=== PATIENT | female | born 1995 | race Two or more races ===

== ENCOUNTER 2024-05-25 10:01 | Emergency (ER) | payer OTHER ==
[~2024-05-25] VITALS: Ht 172.7 cm; Wt 63.5 kg
[2024-05-25] MEDS ORDERED: TAMSULOSIN HCL 0.4 MG CAP PO ONE (10:45)
[2024-05-25] MEDS ORDERED: CEFTRIAXONE SODIUM 1,000 MG VIAL IM ONE (10:45)
[2024-05-25] MEDS ORDERED: KETOROLAC TROMETHAMINE 60 MG VIAL IM ONE (10:45)
[2024-05-25 11:22] LABS: HEMATOCRIT 37.3 % (36.0-45.00); HEMOGLOBIN 12.2 g/dL (12.0-15.00); MEAN CELL VOLUME 91.6 fL (80.00-100.00); MEAN CORPUSCULAR HEMOGLOBIN 30.1 pg (27.00-32.0); MEAN CORPUSCULAR HGB CONC 32.8 g/dl (32.0-36.0); PLATELET COUNT 229 K/uL (150-450); RED BLOOD COUNT 4.07 M/uL (4.00-6.00); RED CELL DISTRIBUTION WIDTH 14.4 % (11.5-14.5)
[2024-05-25 11:56] LABS: ALBUMIN 3.8 gm/dL (3.4-5.0); ALKALINE PHOSPHATASE 57 U/L (50-136); ALT/SGPT 18 U/L (12-78); ANION GAP 7 (10.0-20.0); AST/SGOT 13 U/L (15-37); BLOOD UREA NITROGEN 13 mg/dL (7-18); BUN CREA RATIO 17 (7.0-25.0); CALCIUM 9.7 mg/dL (8.5-10.1); CARBON DIOXIDE 29 mEq/L (21-32); CHLORIDE 112 mmol/L (98-107); CREATININE SERUM 0.76 mg/dL (0.55-1.02); GFR 90.62; GLOBULINA 3.4 G/DL (2.4-3.5); GLUCOSE FASTING 90 mg/dL (65-100); OSMOLALITY SERUM 285 MOSM/KG (275-295); POTASSIUM 4.66 mEq/L (3.5-5.1); SODIUM 143 mmol/L (136-145); TOTAL PROTEIN 7.2 gm/dL (6.4-8.2)
[2024-05-25 12:14] LABS: HCG QUANTITATIVE < 1 mUI/mL (1-3)
[2024-05-25 14:33] LABS: URINE APPEARANCE Clear; URINE BILIRRUBIN Moderate (NEGATIVE); URINE BLOOD Moderate; URINE COLOR Red; URINE GLUCOSE Negative (NEGATIVE); URINE KETONE Negative (NEGATIVE); URINE LEUKOCYTE Moderate; URINE NITRATE Positive; URINE PROTEIN 30 (NEGATIVE)
[2024-05-25 14:37] LABS: URINE EPITHELIAL CELLS 2.7 uL (0.0-38.8); URINE RBC 42.4 uL (0.0-20.8)
[2024-05-25 14:42] LABS: URINE WBC 0.9 uL (0.0-23.2)
[2024-05-25] MEDS ORDERED: TAMS0.4C PO (15:38)
[2024-05-25] MEDS ORDERED: KETO10TA2 PO (15:38)
== END 2024-05-25 17:25 | disposition home or self-care (01) ==
LOC: ER 10:03
PROVIDERS: General Practice
DX: N39.0 Urinary tract infection, site not specified (principal); N83.202 Unspecified ovarian cyst, left side; N83.201 Unspecified ovarian cyst, right side